=== PATIENT | female | born 1970 | race Two or more races ===

== ENCOUNTER 2018-07-31 23:00 | Emergency (ER) | payer SELFPAY ==
[2018-07-31] MEDS ORDERED: Sodium Chloride 0.9% 10 ML Syringe FLUSH PRN (23:39)
[2018-07-31] MEDS ORDERED: Ondansetron 4 MG/2 ML SDV IVPUSH ONE (23:39)
[2018-07-31] MEDS ORDERED: Sodium Chloride 0.9% 1,000 ML IV STA (23:39)
[2018-08-01] MEDS ORDERED: Metoclopramide 10 MG/2 ML SDV IVPUSH ONE (00:06)
[2018-08-01] MEDS ORDERED: Dicyclomine 10 MG Cap PO ONE (00:46)
--- NOTE | 2018-08-01 01:24 | EDM.PDOC ---
ED HPI GENERAL MEDICAL PROBLEM - General Chief Complaint: General Stated Complaint: COUGH DIARRHEA VOMITING Time Seen by Provider: 07/31/18 23:13 Source of Information: Reports: Patient, Family History Limitations: Reports: No Limitations - History of Present Illness INITIAL COMMENTS - FREE TEXT/NARRATIVE: The patient is here for fever, cough, nausea, vomiting and diarrhea. This all started on Tuesday. The patient is here with her grandson and his parents. He has influenza. The patient has some ear pain and sore throat. She has no chest pain or shortness of breath. She has no dysuria. She has no medical problems. She does have a headache. Onset: Gradual Duration: Day(s): (3) Location: Reports: Head Quality: Reports: Ache Severity: Moderate Improves with: Reports: None Worsens with: Reports: None Associated Symptoms: Reports: Cough, Fever/Chills, Headaches, Nausea/Vomiting. Denies: Chest Pain, Shortness of Breath Headache Pain Score (Numeric/FACES): 7 - Related Data Allergies Allergy/AdvReac Type Severity Reaction Status Date / Time amoxicillin Allergy Rash Verified 07/31/18 23:16 clindamycin Allergy Cannot Verified 07/31/18 23:16 Remember ibuprofen [From Motrin] Allergy Cannot Verified 07/31/18 23:16 Remember sumatriptan [From Imitrex] Allergy Cannot Verified 07/31/18 23:16 Remember Home Meds: Home Meds Codeine/Promethazine [Phenergan with Codeine] 5 - 10 ml PO Q6HR PRN #240 ml 06/20 [Rx] Dicyclomine HCl [Bentyl] 10 mg PO TID PRN #20 capsule 08/01/18 [Rx] Metoclopramide HCl [Reglan] 10 mg PO Q6H PRN #20 tablet 08/01/18 [Rx] Past Medical History [employer] History: Reports: Endometriosis Neurological History: Reports: Migraines - Past Surgical History GI Surgical History: Reports: Appendectomy Social & Family History - Tobacco Use Smoking Status *Q: Former Smoker Used Tobacco, but Quit: Yes Month/Year Tobacco Last Used: 5 years ago - Caffeine Use Caffeine Use: Reports: Coffee - Recreational Drug Use Recreational Drug Use: No ED ROS GENERAL - Review of Systems Review Of Systems: See Below Constitutional: Reports: Fever, Chills HEENT: Reports: Ear Pain Respiratory: Reports: Cough. Denies: Shortness of Breath Cardiovascular: Reports: No Symptoms Endocrine: Reports: No Symptoms GI/Abdominal: Reports: Abdominal Pain, Diarrhea, Nausea, Vomiting : Reports: No Symptoms Musculoskeletal: Reports: No Symptoms ED EXAM, GENERAL - Physical Exam Exam: See Below Exam Limited By: No Limitations General Appearance: Alert, No Apparent Distress Ears: Normal External Exam Nose: Normal Inspection Head: Atraumatic, Normocephalic Neck: Normal Inspection Respiratory/Chest: No Respiratory Distress, Lungs Clear, Normal Breath Sounds Cardiovascular: Regular Rate, Rhythm, No Edema, No Murmur GI/Abdominal: Soft, Non-Tender, No Organomegaly, No Mass Back Exam: Normal Inspection Extremities: Normal Inspection Neurological: Alert, Oriented, No Motor/Sensory Deficits Course - Vital Signs Last Recorded V/S: Last Vital Signs Temp 98.3 F 07/31/18 23:16 Pulse 90 07/31/18 23:16 Resp 18 07/31/18 23:16 BP 138/89 07/31/18 23:16 Pulse Ox 99 07/31/18 23:16 - Orders/Labs/Meds Orders: Active Orders 24 hr Category Date Time Status Peripheral IV Care [RC] . DIRECTED Care 07/31/18 23:39 Active Chest 2V [CR] Stat Exams 07/31/18 23:39 Ordered Sodium Chloride 0.9% [Saline Flush] Med 07/31/18 23:39 Active 10 ml FLUSH ASDIRECTED PRN ED Antiemetic Medication Reflex [OM.PC] Stat Oth 07/31/18 23:39 Ordered Peripheral IV Insertion Adult [OM.PC] Stat Oth 07/31/18 23:39 Ordered Medication Orders Sodium Chloride (Saline Flush) 10 ml FLUSH ASDIRECTED PRN PRN Reason: Keep Vein Open Last Admin: 07/31/18 23:57 Dose: 10 ml Labs: Laboratory Tests 07/31/18 07/31/18 08/01/18 Range/Units 23:59 23:59 00:26 WBC 4.83 (3.98-10.04) K/mm3 RBC 4.82 (3.98-5.22) M/mm3 Hgb 9.5 L (11.2-15.7) gm/L Hct 32.2 L (34.1-44.9) % MCV 66.8 L (79.4-94.8) fl MCH 19.7 L (25.6-32.2) pg MCHC 29.5 L (32.2-35.5) g/dl RDW Std Deviation 45.9 (36.4-46.3) fL Plt Count 376 H (182-369) K/mm3 MPV 9.4 (9.4-12.3) fl Neut % (Auto) 58.8 (34.0-71.1) % Lymph % (Auto) 21.5 (19.3-51.7) % [place] % (Auto) 16.6 H (4.7-12.5) % Eos % (Auto) 1.2 (0.7-5.8) Baso % (Auto) 1.9 H (0.1-1.2) % Neut # (Auto) 2.84 (1.56-6.13) K/mm3 Lymph # (Auto) 1.04 L (1.18-3.74) K/mm3 [place] # (Auto) 0.80 H (0.24-0.36) K/mm3 Eos # (Auto) 0.06 (0.04-0.36) K/mm3 Baso # (Auto) 0.09 H (0.01-0.08) K/mm3 Manual Slide Review Abnormal smear Sodium 137 (136-145) mEq/L Potassium 3.0 L (3.5-5.1) mEq/L Chloride 103 (98-107) mEq/L Carbon Dioxide 23 (21-32) mEq/L Anion Gap 14.0 (5-15) BUN 6 L (7-18) mg/dL Creatinine 0.7 (0.55-1.02) mg/dL Est Cr Clr Drug Dosing 77.73 mL/min Estimated GFR (MDRD) > 60 (>60) mL/min BUN/Creatinine Ratio 8.6 L (14-18) Glucose 117 H (74-106) mg/dL Calcium 8.7 (8.5-10.1) mg/dL Total Bilirubin 0.2 (0.2-1.0) mg/dL AST 18 (15-37) U/L ALT 25 (14-59) U/L Alkaline Phosphatase 74 (46-116) U/L Total Protein 7.3 (6.4-8.2) g/dl Albumin 3.5 (3.4-5.0) g/dl Globulin 3.8 gm/dL Albumin/Globulin Ratio 0.9 L (1-2) Lipase 184 (73-393) U/L Urine Color Light yellow (Yellow) Urine Appearance Slt cloudy H (Clear) Urine pH 7.0 (5.0-8.0) Ur Specific [place] 1.010 (1.005-1.030) Urine Protein Negative (Negative) Urine Glucose (UA) Negative (Negative) Urine Ketones Negative (Negative) Urine Occult Blood Trace-intact H (Negative) Urine Nitrite Negative (Negative) Urine Bilirubin Negative (Negative) Urine Urobilinogen 0.2 (0.2-1.0) Ur Leukocyte Esterase Negative (Negative) Urine RBC 0-5 (0-5) /hpf Urine WBC 0-5 (0-5) /hpf Ur Epithelial Cells Not Reportable Ur Squamous Epith Cells 5-10 H (0-5) /hpf Urine Bacteria Rare (FEW) /hpf Urine Mucus Rare H (FEW) /hpf Meds: Medications Generic Name Dose Route Start Last Admin Trade Name Rosita PRN Reason Stop Dose Admin Sodium Chloride 10 ml 07/31/18 23:39 07/31/18 23:57 Saline Flush FLUSH 10 ml ASDIRECTED PRN Administration Keep Vein Open Discontinued Medications Generic Name Dose Route Start Last Admin Trade Name Rosita PRN Reason Stop Dose Admin Dicyclomine HCl 10 mg 08/01/18 00:46 08/01/18 00:52 Bentyl PO 08/01/18 00:47 10 mg ONETIME ONE Administration Sodium Chloride 1,000 mls @ 1,000 mls/hr 07/31/18 23:39 07/31/18 23:56 Normal Saline IV 08/01/18 00:38 1,000 mls/hr .BOLUS STA Administration Metoclopramide HCl 10 mg 08/01/18 00:06 08/01/18 00:10 Reglan IVPUSH 08/01/18 00:07 10 mg ONETIME ONE Administration Ondansetron HCl 4 mg 07/31/18 23:39 08/01/18 00:07 Zofran IVPUSH 07/31/18 23:40 Not Given ONETIME ONE - Re-Assessments/Exams Free Text/Narrative Re-Assessment/Exam: 08/01/18 01:21 I ordered an IV NS 1L bolus, zofran 4mg IV, labs, UA and a CXR. Her CXR shows no infiltrates. 08/01/18 01:22 Her Hgb was low at 9.5. Her K was low at 3. Her glucose was 117. Her UA shows no UTI. Her influenza A was positive. She is out of the window to give tamiflu. She could not take the zofran so I gave reglan. She also had more cramps so I gave bentyl 10mg by mouth. I will get her on some reglan for the diarrhea and bentyl for the stomach cramps and phenergan with codeine for the cough. Departure - Departure Time of Disposition: 01:25 Disposition: Home, Self-Care 01 Condition: Good Clinical Impression: Influenza A, Viral gastroenteritis - Discharge Information *PRESCRIPTION DRUG MONITORING PROGRAM REVIEWED*: No *COPY OF PRESCRIPTION DRUG MONITORING REPORT IN PATIENT PATRICIA: No Prescriptions: Codeine/Promethazine [Phenergan with Codeine] 5 - 10 ml PO Q6HR PRN #240 ml PRN Reason: Cough Dicyclomine HCl [Bentyl] 10 mg PO TID PRN #20 capsule PRN Reason: Abdominal Pain Metoclopramide HCl [Reglan] 10 mg PO Q6H PRN #20 tablet PRN Reason: Nausea/Vomiting Referrals: PCP,None [Primary Care Provider] - Forms: ED Department Discharge Additional Instructions: Drink plenty of fluids. Take the phenergan with codeine for the cough. Take the reglan every 6 hours as needed for nausea and vomiting. Try the bentyl 10mg 3 times per day as needed for stomach cramps. Please return if you are worse. Follow up with your doctor within a week. - My Orders Last 24 Hours: My Active Orders 07/31/18 23:39 Peripheral IV Care [RC] . DIRECTED Chest 2V [CR] Stat Sodium Chloride 0.9% [Saline Flush] 10 ml FLUSH ASDIRECTED PRN ED Antiemetic Medication Reflex [OM.PC] Stat Peripheral IV Insertion Adult [OM.PC] Stat - Assessment/Plan Last 24 Hours: My Active Orders 07/31/18 23:39 Peripheral IV Care [RC] . DIRECTED Chest 2V [CR] Stat Sodium Chloride 0.9% [Saline Flush] 10 ml FLUSH ASDIRECTED PRN ED Antiemetic Medication Reflex [OM.PC] Stat Peripheral IV Insertion Adult [OM.PC] Stat
--- NOTE | 2018-08-01 07:02 | CR ---
Chest: Two views of the chest were obtained. Comparison: No prior chest x-ray. Heart size and mediastinum are within normal limits. Lungs are clear with no acute parenchymal change. Minimal scoliosis is noted. Impression: 1. Nothing acute is seen on two-view chest x-ray. Diagnostic code #2
== END 2018-08-01 01:50 | disposition home or self-care (01) ==
LOC: JD.ED 23:00
DX: J10.1 Influenza due to other identified influenza virus with other respiratory manifestations (principal); A08.4 Viral intestinal infection, unspecified; Z88.1 Allergy status to other antibiotic agents; Z88.6 Allergy status to analgesic agent; Z87.891 Personal history of nicotine dependence
CPT/HCPCS: 36415; 71046; 80053; 81001; 83690; 85025; 87804; 96361; 96374; 99283; A9270; J2765; J7040; 99284